=== PATIENT | female | born 1975 | race Caucasian/White ===

== ENCOUNTER 2024-05-20 22:35 | Inpatient (IN) ==
[2024-05-21] MEDS: MoRPHine SULFATE 4 MG/ML 1 ML CARP\\VIAL IV STA (00:10)
[2024-05-21] MEDS: ONDANSETRON INJ 2 MG/ML 2 ML VIAL IV STA (00:10)
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
[2024-05-21 00:33] LABS: Basophils # (auto) 0.05 K/uL (0.00-0.20); Basophils % (auto) 0.5 %; Eosinophils # (auto) 0.02 K/uL (0.00-0.50); Eosinophils % (auto) 0.2 %; Hematocrit (blood only) 48.9 % (37.0-47.0); Hemoglobin 17.3 g/dl (12.0-16.0); Immature Granulocytes # (auto) 0.04 K/uL (0.01-0.20); Immature Granulocytes % (auto) 0.4 %; Lymphocytes # (auto) 1.88 K/uL (1.20-3.40); Lymphocytes % (auto) 19.7 %; Mean Corpuscular Hemoglobin 37.7 pg (25.0-34.0); Mean Corpuscular Hgb Conc 35.4 g/dL (32.0-36.0); Mean Corpuscular Volume 106.5 fL (80.0-100.0); Mean Platelet Volume 12.1 fL (9.4-12.4); Monocytes # (auto) 0.47 K/uL (0.11-0.59); Monocytes % (auto) 4.9 %; Neutrophils # (auto) 7.09 K/uL (1.40-6.50); Neutrophils % (auto) 74.3 %; Platelet Count 181 K/uL (130-400); RDW Coefficient of Variation 18.5 % (11.5-14.5); RDW Standard Deviation 71.7 fL (36.4-46.3); Red Blood Count 4.59 M/uL (4.20-5.40); White Blood Count 9.55 K/ul (4.8-10.8)
[2024-05-21] MEDS: OPTIRAY 320 125ml IV ONE (00:44)
[2024-05-21 00:52] LABS: Partial Thromboplastin Ratio 0.9; Partial Thromboplastin Time 23 Seconds (21-31); Prothrombin Time 10.8 Seconds (9.0-12.0)
[2024-05-21 00:59] LABS: Troponin I High Sensitivity 584.5 pg/ml (0-14)
[2024-05-21 01:02] LABS: Albumin Level 3.3 gm/dl (3.4-5.0); Anion Gap 14 (3-11); Bilirubin,Total 1.3 mg/dl (0.2-1.0); Calcium 8.9 mg/dl (8.6-10.3); Carbon Dioxide 30 mmol/L (21-32); Chloride 94 mmol/L (98-107); Sodium 138 mmol/L (136-145)
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
[2024-05-21 01:23] LABS: Alanine Aminotransferase 55 U/L (7-52); Albumin Globulin Ratio 1.3 (0.9-2); Alkaline Phosphatase 214 U/L (34-104); Aspartate Aminotransferase 100 U/L (13-39); BUN Creatinine Ratio 10.3 (10-20); Blood Urea Nitrogen 8 mg/dl (6-23); Globulin 2.5 gm/dl (2.5-4.0); Glucose 154 mg/dl (70-99(Fasting)); Lipase 19 U/L (11-82); Total Protein 5.8 gm/dl (6.0-8.3)
[2024-05-21] MEDS: POTASSIUM CHLORIDE 10 MEQ TABCR PO STA (01:27)
[2024-05-21] MEDS: ASPIRIN CHEW 324 MG PO STA (01:27)
[2024-05-21] MEDS: ALBUT/IPRATROP 3MG/0.5MG NEB 3 ML VIAL NEB STA (01:28)
[2024-05-21] MEDS: SODIUM CHLORIDE 0.9% 1,000 ML IV ONE (01:28)
[2024-05-21 01:48] LABS: Magnesium 1.4 mg/dl (1.7-2.4)
[2024-05-21] MEDS ORDERED: Patient's HEIGHT &/or WEIGHT Needed STA (02:10)
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
[2024-05-21] MEDS: MAGNESIUM SULFATE / D5W 1 GM/100 ML BAG IV SCH (02:46)
[2024-05-21] MEDS: metroNIDAZOLE 500 MG/100 ML BAG IV STA (02:47)
[2024-05-21] MEDS: NSS + 20MEQ KCL 20 MEQ/1,000 ML BAG IV SCH (02:47)
[2024-05-21] MEDS: CEFEPIME 2000MG 2,000 MG/20 ML SYR IV STA (02:47)
[2024-05-21] MEDS: methylPREDNISolone 125 MG/2 ML VIAL IV STA (02:47)
[2024-05-21] MEDS ORDERED: MoRPHine SULFATE 4 MG/ML 1 ML CARP\\VIAL IV PRN (03:01)
[2024-05-21 03:14] LABS: Adenovirus PCR Not Detected (NotDetected); Bordetella parapertussis PCR Not Detected (NotDetected); Bordetella pertussis PCR Not Detected (NotDetected); Chlamydia pneumoniae PCR Not Detected (NotDetected); Coronavirus 229E PCR Not Detected (NotDetected); Coronavirus CoV-2 (COVID19)PCR Not Detected (NotDetected); Coronavirus HKU1 PCR Not Detected (NotDetected); Coronavirus NL63 PCR Not Detected (NotDetected); Coronavirus OC43PCR Not Detected (NotDetected); Human Metapneumovirus PCR Not Detected (NotDetected); Influenza A PCR Not Detected (NotDetected); Influenza B PCR Not Detected (NotDetected); Mycoplasma pneumoniae PCR Not Detected (NotDetected); Parainfluenza Virus 1 PCR Not Detected (NotDetected); Parainfluenza Virus 2 PCR Not Detected (NotDetected); Parainfluenza Virus 3 PCR Not Detected (NotDetected); Parainfluenza Virus 4 PCR Not Detected (NotDetected); Respiratory Syncytial VirusPCR Not Detected (NotDetected); Rhinovirus/Enterovirus PCR Not Detected (NotDetected)
[2024-05-21] MEDS: MoRPHine SULFATE 2 MG/ML CARP IV PRN (04:21)
[2024-05-21] MEDS: ALBUT/IPRATROP 3MG/0.5MG NEB 3 ML VIAL NEB SCH (07:15)
--- NOTE | 2024-05-21 07:25 | Pulmonary Consultation ---
Date of Consultation May 21, 2024 Assessment & Plan (1) Aspiration into airway: Patient aspirated a hard candy into her airway last night. Her was successfully able to remove it after aggressive back slaps and Heimlich maneuver. She continues with discomfort in her chest and back. Pain control f or this will be important. Will provide incentive spirometry as well. Imaging with some haziness and groundglass opacities in the bilateral lower lung sanchez. She does have rhonchorous breath sounds likely related to her recent aspiration. Agree with steroids and antibiotic coverage for now, however de- escalation of antibiotics sooner than later. Thankfully, she is only requiring this time. Hopefully she will continue to recover quickly and be able to be discharged home. No indication for bronchoscopic evaluation at this time. Will place the patient on Anoro for now given her exam findings and since she has received benefit from DuoNebs. (2) Hypoxia: Resolved. Likely the setting of aspiration pneumonitis. (3) Tobacco dependence: Patient carries an approximate 32-55-jcbc-year history of smoking. She continues smoke half pack a day. Smoking cessation was encouraged. Given her description of "asthma" symptoms that she has has been experiencing an increasing frequency over the last few years and her smoking history, would be interested in formal pulmonary function testing in the outpatient setting to assess her respiratory physiology. Her CT does not demonstrate significant emphysematous changes, would be interested in her degree of obstructive lung dysfunction. Certainly, asthma may be the underlying diagnosis, however given her associated smoking, this puts her at risk for ongoing progression of lung disease. (4) Asthma exacerbation: Inhaled steroids and systemic steroids as above. Transition to oral corticosteroid starting tomorrow for a total course of 7 days. Plan Thank you for allowing us to precipitate in the care of this pleasant patient. Pulmonary medicine will continue to follow. Supervising Physician Co-Signing Physician Notes I separately evaluated the patient and agree with the note above aside for any additions/exceptions noted: Unfortunately, no PFTs available as an outpatient. Patient notes that prior to her choking episode she had the beginnings to have an asthma/COPD exacerbation for 2 days prior. I suspect she may have an element of asthma and COPD overlap syndrome given her age. She does endorse about a 13-zkfl-ifcd smoking history. Would recommend checking an alpha-1 phenotype as an outpatient and level. Would also recommend outpatient PFTs and exhaled nitric oxide testing. Agree with systemic corticosteroids for today and likely transitioning to p.o. prednisone tomorrow. From a LABA/LAMA to nebulized budesonide nebulized formoterol. Will de-escalate from cefepime and Flagyl to Rocephin and doxycycline. She did have a prolonged QTc and a reduction in her EF possibly from Takotsubo's. Smoking cessation strongly encouraged. I did review her CT chest which revealed some mild inspissated mucus in the lower lobes. No overt signs of aspirated content in her airways. No role for bronchoscopy currently. Would recommend sputum cultures if able to obtain. On exam she is wheezing bilaterally on auscultation. She does not appear to be overtly dyspneic. She appears fairly euvolemic. Recommend follow-up CT chest in about 2 to 3 months to follow-up on the mosaic attenuation seen in the lower lobes. History of Present Illness Reason for Consultation: aspiration pneumonia, COPD ex Requesting Physician: Dr. Vick Attending Physician: Eliu Brock MD History of Present Illness Patient is a 48-year-old female with a significant past medical history of hypertension and tobacco dependence who presented to the emergency department overnight after choking episode. She reports that she has not been feeling well since just before . She felt symptoms of a cold including a cough. She was eating a lemon candy last night while in bed and noticed that she had inhaled and became lodged in her airway. She was unable to clear it with a cough and her performed back thrusts as well as the Heimlich maneuver and eventually was able to dislodge the candy. She states that she has had discomfort in her chest and upper back since the event. She reports that she did vomit a few times during this effort. During evaluation in the emergency setting, she was noted to have possible aspiration of the bilateral lower airways without foreign body present. She was started on antibiotics in the form of cefepime and Flagyl as she has a penicillin allergy. She has also been placed on intravenous steroids. Upon evaluation in room 2302, the patient is awake, alert, and oriented. Other than the discomfort in her chest and upper back, she has felt somewhat better with her breathing. She reports a prior diagnosis of asthma which has worsened throughout the last several years. She typically has to use her rescue inhaler with any colds, but admits that she has been starting to have to use it during the morning as she has a muff winder cough. She has never undergone formal pulmonary function testing herself. She reports no prior history of allergies. There is a significant family history for lung cancer in her paternal grandfather. Both of her children have asthma. She denies any occupational exposures. She does smoke approximately half a pack a day and has done so for the last 15+ years. Allergies Allergy/AdvReac Type Severity Reaction Status Date / Time Penicillins AdvReac Intermediate Vomiting Verified 05/21/24 02:07 Home Medications Medication Instructions Recorded Confirmed Type albuterol sulfate 90 mcg/actuation 2 puff inhalation Q6H PRN 06/15/23 12/06/23 Rx aerosol inhaler shortness of breath or wheezing #18 grams Patient History Surgical History H/O hysterectomy for benign disease Family History Mother Colorectal cancer Uncle Acute leukemia Grandmother (Paternal) Lung cancer Father Myocardial infarction Other Heart disease Denies family history of Ovarian cancer Prostate cancer Breast cancer Social History Smoking Status: Current every day smoker Tobacco Type: Cigarettes Age Started Using Tobacco: 16; packs per day: 0.75; Second Hand Exposure: No; Do You Dip or Chew Tobacco: No; Hx Alcohol Use: Yes Alcohol Intake Frequency: 2-3 x/Week Hx Substance Use: Yes Preferred Language: American Visual Impairment: No Limitations Hearing Ability: Normal 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 Beliefs That Will Affect Care: None marital status: Current Living Situation: Spouse current occupational status: employed How many Children do You have: 2 Feels Safe at Home: Yes Childhood Exposure to Second-Hand Smoke: No Diet: regular Diet Comment: regular caffeine: Yes (0.5 cup coffee in AM) during the past year weight has: remained stable Dental Care, Regularly: No Physical Activity Frequency: Does not Exercise Seatbelt Use: always Sunscreen Use: No Review of Systems Review of Systems: A complete 10 point review of systems was reviewed with the patient with pertinent positives and negatives as per history of present illness. All else were negative. Physical Exam Physical Exam: VITAL SIGNS Vital signs and nursing notes were reviewed. GENERAL 48-year-old female appearing her stated age who is in no acute distress. Communicates well with provider and answers questions appropriately. SKIN Without rashes or lesions. NOSE Midline and without cyanosis. MOUTH/OROPHARYNX Without perioral cyanosis. NECK Neck with FROM. LUNGS Chest wall evaluation demonstrates normal chest wall A:P diameter. Auscultation reveals rhonchorous breath sounds at the bilateral bases with slight inspiratory wheezes in the upper lung sanchez. CARDIAC RRR with S1/S2. No murmur, rubs, or gallops appreciated. ABDOMEN Abdominal inspection demonstrates a flat abdomen. BS normoactive all four quadrants. No tenderness, palpable masses, or ascites noted. EXTREMITIES Nail clubbing not present. No peripheral cyanosis. No pretibial edema present. +3/5 radial palpated throughout. PSYCH A&Ox3 and cooperates fully with examiner. Pt is very pleasant and interacts well with examiner. Results & Data Results & Data Vital Signs (Past 12 Hours) Vital Signs Temp Pulse Pulse Resp BP BP Pulse Ox 05/21/24 07:20 98 H 18 93 05/21/24 07:05 36.6 C 94 H 18 108/77 95 05/21/24 04:42 106 H 05/21/24 04:38 05/21/24 04:28 36.7 C 109 H 22 120/82 95 05/21/24 03:32 36.9 C 05/21/24 03:30 98 H 19 110/82 95 05/21/24 02:44 103 H 05/21/24 02:42 102 H 25 H 113/91 97 05/21/24 01:48 108 H 31 H 91 05/21/24 01:36 98 H 20 98 05/21/24 01:30 102 H 125/99 99 05/21/24 01:03 106 H 31 H 115/90 97 05/21/24 00:22 26 H 89 L 05/21/24 00:06 100 H 24 90 05/20/24 23:54 98 H 21 88 L 05/20/24 23:36 104 H 26 H 93 05/20/24 23:24 99 H 21 87 L 05/20/24 23:18 98 H 19 91 05/20/24 23:09 95 H 16 89 L 05/20/24 23:00 92/71 L 05/20/24 23:00 92/71 L 05/20/24 22:57 87 18 92 05/20/24 22:54 89 23 91 05/20/24 22:48 89 05/20/24 22:39 36.6 C 104 H 20 95/65 L 100 05/20/24 22:35 05/20/24 22:35 O2 Del Method O2 Flow Rate 05/21/24 07:20 Nasal Cannula 2 05/21/24 07:05 Nasal Cannula 4 05/21/24 04:42 05/21/24 04:38 Nasal Cannula 4 05/21/24 04:28 Nasal Cannula 4 05/21/24 03:32 05/21/24 03:30 Nasal Cannula 4 05/21/24 02:44 05/21/24 02:42 Nasal Cannula 4 05/21/24 01:48 05/21/24 01:36 05/21/24 01:30 Oxymask 8 05/21/24 01:03 Oxymask 10 05/21/24 00:22 Oxymask 8 05/21/24 00:06 05/20/24 23:54 05/20/24 23:36 05/20/24 23:24 05/20/24 23:18 05/20/24 23:09 05/20/24 23:00 05/20/24 23:00 05/20/24 22:57 05/20/24 22:54 05/20/24 22:48 05/20/24 22:39 Room Air 05/20/24 22:35 Room Air 05/20/24 22:35 Room Air PG Care Time/CCT Total # of Minutes Spent Total Time Spent with Patient: Total time spent is greater than 50% in coordination of care (as documented) at patient's floor/unit and/or counseling patient: Coding Level of Care Code 81292 IN/OBS CONSULT LVL 3,45M Diagnoses Aspiration into airway T17.908A Hypoxia R09.02 Tobacco dependence F17.200 Asthma exacerbation J45.901
[2024-05-21] MEDS: ONDANSETRON INJ 2 MG/ML 2 ML VIAL IV PRN (07:46)
[2024-05-21 09:02] LABS: Estimated Average Glucose 103 mg/dl; Hemoglobin A1C 5.2 % (4.5-5.6)
[2024-05-21 09:10] LABS: Albumin Globulin Ratio 1.1 (0.9-2); Albumin Level 2.9 gm/dl (3.4-5.0); BUN Creatinine Ratio 12.9 (10-20); Calcium 8.4 mg/dl (8.6-10.3); Chol HDL Ratio 2.1 (0-5); Creatinine Clr Calc Pharmacy 85.3 ml/min; Globulin 2.7 gm/dl (2.5-4.0); Magnesium 2.3 mg/dl (1.7-2.4); Potassium 4.2 mmol/L (3.5-5.1); Total Protein 5.6 gm/dl (6.0-8.3); Troponin I High Sensitivity 489.7 pg/ml (0-14)
[2024-05-21 09:22] LABS: Folate (Folic Acid),Ser orPlas 2.92 ng/ml (>5.38)
[2024-05-21] MEDS: metroNIDAZOLE 500 MG/100 ML BAG IV SCH (10:01)
[2024-05-21] MEDS: ALBUT/IPRATROP 3MG/0.5MG NEB 3 ML VIAL NEB PRN (10:26)
--- NOTE | 2024-05-21 10:38 | XCELERA ---
[id number] \\[id number]
[2024-05-21] MEDS: FOLIC ACID 1 MG in SYRINGE 9.8 ML IV STA (11:00)
[2024-05-21] MEDS: LOSARTAN POTASSIUM 25 MG TAB PO SCH (11:00)
[2024-05-21] MEDS: CYANOCOBALAMIN (B-12) 500 MCG TABLET PO SCH (11:00)
[2024-05-21] MEDS: CEFEPIME 2000MG 2,000 MG/20 ML SYR IV SCH (11:43)
[2024-05-21] MEDS: METOPROLOL TARTRATE 25 MG TAB PO SCH (12:40)
--- NOTE | 2024-05-21 12:53 | Hospitalist Progress Note ---
Date of Service May 21, 2024 Assessment & Plan (1) Takotsubo cardiomyopathy: Plan: echo findings in the context of her left heart cath findings (minimal non- obstructive CAD) all c/w stress induced cardiomyopathy fortunately she appears compensated to start BB and low-dose ARB appreciate cardiology assistance (2) Asthma exacerbation: Plan: cont IV steroids, bronchodilators, etc. (3) NSTEMI (non-ST elevated myocardial infarction): Plan: troponin elevation 2nd to myocardial demand ischemia in the setting of her pneumonia, resp failure, and her stress induced CM no evidence of ACS (4) Acute respiratory failure with hypoxia: Plan: 2nd to #5 (5) Aspiration pneumonia: Plan: cont IV abx therapy b/l lower lobe pneumonia on CT chest resp biofire negative (6) Hypokalemia: Plan: replaced resolved (7) Chest wall contusion: Plan: 2nd to first aid (Heimlich maneuver) given for choking episode at home no bony injury, rib fracture, etc seen on imaging k-pad heating ordered lidoderm patches pain meds prn (8) Choking episode: Plan: 1x occurrence not a regular issue for her at home s/p Heimlich maneuver at home (9) Elevated LFTs: Plan: 2nd to known etoh-related cirrhosis (10) Tobacco dependence: (11) Hypertension: (12) Folic acid deficiency: Plan: start folate 1mg daily (13) B12 deficiency: Plan: start B12 1000mcg daily (14) Polycythemia: Plan: 2nd to chronic tobacco use and underlying lung disease repeat CBC am Plan updated at bedside Admission and Anticipated Discharge Date Admission Date: May 21, 2024 Subjective patient's main complaint is that of lower chest/upper abdominal discomfort - pleuritic coughing at times patient reports that even before she choked on the candy at home she had been sick with URI symptoms for a few days does confirm h/o cirrhosis 2nd to etoh tele since admission - NSR Physical Exam Physical Exam: gen - thin, uncomfortable appearing, holds her lower chest due to discomfort neck - no JVD mouth - throat is erythematous/irritated, MMM otherwise heart - RRR, s1 s2, no murmur lungs - rales b/l bases, occasional wheeze, no increased work of breathing abd - soft ND BS+; tender high epigastric region extending onto the lower midline chest wall ext - no edema, pulses 2+ b/l feet Results & Data Results & Data Vital Signs (Past 12 Hours) Vital Signs Temp Pulse Pulse Resp BP BP Pulse Ox 05/21/24 11:14 36.6 C 93 H 17 104/72 94 05/21/24 10:26 69 16 96 05/21/24 08:00 99 H 05/21/24 08:00 05/21/24 07:20 98 H 18 93 05/21/24 07:05 36.6 C 94 H 18 108/77 95 05/21/24 04:42 106 H 05/21/24 04:38 05/21/24 04:28 36.7 C 109 H 22 120/82 95 05/21/24 03:32 36.9 C 05/21/24 03:30 98 H 19 110/82 95 05/21/24 02:44 103 H 05/21/24 02:42 102 H 25 H 113/91 97 05/21/24 01:48 108 H 31 H 91 05/21/24 01:36 98 H 20 98 05/21/24 01:30 102 H 125/99 99 05/21/24 01:03 106 H 31 H 115/90 97 O2 Del Method O2 Flow Rate 05/21/24 11:14 Room Air 05/21/24 10:26 Nasal Cannula 1 05/21/24 08:00 05/21/24 08:00 Nasal Cannula 2 05/21/24 07:20 Nasal Cannula 2 05/21/24 07:05 Nasal Cannula 4 05/21/24 04:42 05/21/24 04:38 Nasal Cannula 4 05/21/24 04:28 Nasal Cannula 4 05/21/24 03:32 05/21/24 03:30 Nasal Cannula 4 05/21/24 02:44 05/21/24 02:42 Nasal Cannula 4 05/21/24 01:48 05/21/24 01:36 05/21/24 01:30 Oxymask 8 05/21/24 01:03 Oxymask 10 Laboratory Results Laboratory Results - last 24 hr 05/20/24 05/21/24 05/21/24 22:55 02:20 02:52 WBC 9.55 RBC 4.59 Hgb 17.3 H Hct 48.9 H MCV 106.5 H MCH 37.7 H MCHC 35.4 RDW Std Deviation 71.7 H RDW Coeff of Nathan 18.5 H Plt Count 181 MPV 12.1 Immature Gran % (Auto) 0.4 Neut % (Auto) 74.3 Lymph % (Auto) 19.7 [place] % (Auto) 4.9 Eos % (Auto) 0.2 Baso % (Auto) 0.5 Neut # (Auto) 7.09 H Lymph # (Auto) 1.88 [place] # (Auto) 0.47 Eos # (Auto) 0.02 Baso # (Auto) 0.05 Immature Gran # (Auto) 0.04 PT 10.8 INR 1.0 APTT 23 PTT Ratio 0.9 Sodium 138 Potassium 3.0 L Chloride 94 L Carbon Dioxide 30 Anion Gap 14 H BUN 8 Creatinine 0.78 Est Cr Clr Drug Dosing Not Reportable eGFR 93.63 BUN/Creatinine Ratio 10.3 Glucose 154 H Estimat Average Glucose Hemoglobin A1c Calcium 8.9 Magnesium 1.4 L Total Bilirubin 1.3 H AST 100 H ALT 55 H Alkaline Phosphatase 214 H Troponin I High Sens 584.5 H* 806.0 H* D Total Protein 5.8 L Albumin 3.3 L Globulin 2.5 Albumin/Globulin Ratio 1.3 Triglycerides Cholesterol LDL Cholesterol, Calc VLDL Cholesterol, Calc HDL Cholesterol Cholesterol/HDL Ratio Lipase 19 Vitamin B12 Folate Nasal Screen MRSA (PCR) Negative Adenovirus (PCR) Not Detected B. pertussis DNA (PCR) Not Detected B.parapertussis DNA PCR Not Detected C. pneumoniae DNA (PCR) Not Detected Coronavirus OC43 (PCR) Not Detected Coronavirus HKU1 (PCR) Not Detected Coronavirus 229E (PCR) Not Detected SARS-CoV-2 (PCR) Not Detected Coronavirus NL63 (PCR) Not Detected Human Metapneumovir PCR Not Detected Influenza Type A (PCR) Not Detected Influenza Type B (PCR) Not Detected M. pneumoniae (PCR) Not Detected Parainfluenza 1 (PCR) Not Detected Parainfluenza 2 (PCR) Not Detected Parainfluenza 3 (PCR) Not Detected Parainfluenza 4 (PCR) Not Detected RSV (PCR) Not Detected Entero/Rhino (PCR) Not Detected 05/21/24 08:05 WBC RBC Hgb Hct MCV MCH MCHC RDW Std Deviation RDW Coeff of Nathan Plt Count MPV Immature Gran % (Auto) Neut % (Auto) Lymph % (Auto) [place] % (Auto) Eos % (Auto) Baso % (Auto) Neut # (Auto) Lymph # (Auto) [place] # (Auto) Eos # (Auto) Baso # (Auto) Immature Gran # (Auto) PT INR APTT PTT Ratio Sodium 137 Potassium 4.2 D Chloride 103 Carbon Dioxide 25 Anion Gap 9 BUN 9 Creatinine 0.70 Est Cr Clr Drug Dosing 85.3 eGFR 106.62 BUN/Creatinine Ratio 12.9 Glucose 170 H Estimat Average Glucose 103 Hemoglobin A1c 5.2 Calcium 8.4 L Magnesium 2.3 Total Bilirubin 1.0 AST 65 H ALT 45 Alkaline Phosphatase 184 H Troponin I High Sens 489.7 H* D Total Protein 5.6 L Albumin 2.9 L Globulin 2.7 Albumin/Globulin Ratio 1.1 Triglycerides 87 Cholesterol 183 LDL Cholesterol, Calc 79 VLDL Cholesterol, Calc 17 HDL Cholesterol 87 Cholesterol/HDL Ratio 2.1 Lipase Vitamin B12 210 Folate 2.92 L Nasal Screen MRSA (PCR) Adenovirus (PCR) B. pertussis DNA (PCR) B.parapertussis DNA PCR C. pneumoniae DNA (PCR) Coronavirus OC43 (PCR) Coronavirus HKU1 (PCR) Coronavirus 229E (PCR) SARS-CoV-2 (PCR) Coronavirus NL63 (PCR) Human Metapneumovir PCR Influenza Type A (PCR) Influenza Type B (PCR) M. pneumoniae (PCR) Parainfluenza 1 (PCR) Parainfluenza 2 (PCR) Parainfluenza 3 (PCR) Parainfluenza 4 (PCR) RSV (PCR) Entero/Rhino (PCR) PG Care Time/CCT Total # of Minutes Spent Total Time Spent with Patient: Total time spent is greater than 50% in coordination of care (as documented) at patient's floor/unit and/or counseling patient: Coding Level of Care Code None Diagnoses Takotsubo cardiomyopathy I51.81 Exacerbation of intermittent asthma, unspecified asthma severity J45.21 Asthma severity: unspecified severity Asthma persistence: intermittent NSTEMI (non-ST elevated myocardial infarction) I21.4 Acute respiratory failure with hypoxia J96.01 Aspiration pneumonia J69.0 Aspiration pneumonia type: unspecified Laterality: unspecified laterality Lung location: unspecified part of lung Hypokalemia E87.6 Chest wall contusion S20.219A Encounter type: initial encounter Laterality: unspecified laterality Choking episode R09.89 Elevated LFTs R79.89 Tobacco dependence F17.200 Primary hypertension I10 Hypertension type: primary hypertension Folic acid deficiency E53.8 B12 deficiency E53.8 Polycythemia D75.1 (2) Asthma exacerbation Asthma severity: unspecified severity Asthma persistence: intermittent Qualified Code(s): J45.21 - Mild intermittent asthma with (acute) exacerbation (5) Aspiration pneumonia Aspiration pneumonia type: unspecified Laterality: unspecified laterality Lung location: unspecified part of lung Qualified Code(s): J69.0 - Pneumonitis due to inhalation of food and vomit (7) Chest wall contusion Encounter type: initial encounter Laterality: unspecified laterality Qualified Code(s): S20.219A - Contusion of unspecified front wall of thorax, initial encounter (11) Hypertension Hypertension type: primary hypertension Qualified Code(s): I10 - Essential (primary) hypertension
[2024-05-21] MEDS ORDERED: methylPREDNISolone 10 mg/mL (For Ped Dose < 7mg) IV SCH (14:00)
--- NOTE | 2024-05-21 14:02 | Electrocardiogram Report ---
Test Reason : Blood Pressure : */* mmHG Vent. Rate : 89 BPM Atrial Rate : 89 BPM P-R Int : 144 ms QRS Dur : 84 ms QT Int : 424 ms P-R-T Axes : 60 24 43 degrees QTcB Int : 515 ms Normal sinus rhythm Low voltage QRS Prolonged QT Abnormal ECG No previous ECGs available Confirmed by Johnathan Lee ([id number]) on 05/21/2024 2:02:07 PM Referred By: REFERRED SELF Confirmed By: Johnathan Lee
--- NOTE | 2024-05-21 14:05 | Cardiology Consultation ---
Date of Consultation May 21, 2024 Assessment & Plan (1) Elevated troponin I level: (2) Takotsubo cardiomyopathy: Mrs. Valdez is a 48-year-old female with a history of Hypertension, Tobacco Dependence, Peripheral Neuropathy, Nephrolithiasis and COPD/Asthma who was in her usual state of health when she tried to swallow a piece of hard candy (lemon-head) and realized that she accidentally aspirated that hard candy into her airway/lung. Fortunately her was lying on the couch right beside her, so he immediately performed the Heimlich maneuver several times and even tried to finger sweep her upper airway. The patient estimates that the piece of candy was down in her airway/lungs for about a minute and a half at the most (although it felt like it was forever) -- long enough for the coating on the candy to dissolve. Patient also was gagging herself trying to vomit it up. Ultimately was able to get the candy up and out of her mouth with the Heimlich maneuver. However, the patient continued to feel short of breath, is wheezing, and was found to have significant aspiration into bilateral lungs. Prior to this event, she thought she is having some mild aggravation of her underlying asthma, however, she became significantly worse, to the point where she knew she had to come to the emergency department for assessment. In the ER patient was intermittently hypoxic with SpO2 levels in the upper 80s. She does have a normal white blood cell count at 9.55, hemoglobin and hematocrit are elevated at 17.3 g per dL and 48.9% respectively. Normal platelet count. She was hypokalemic with a serum potassium level of 3.0 mmol/L. BUN is 8, creatinine 0.78. Magnesium was slightly low but that has been corrected as well. Patient was placed on supplemental oxygen, received DuoNeb nebulizer treatments, and started on antibiotics to cover her aspiration. She was also noted to have an elevated high sensitivity troponin I level of 584.5 pg/mL which subsequently peaked at 806.0 pg/mL, and subsequently trended down to 489.7 pg/mL. Her EKG 05/21/24 showed: Normal sinus rhythm. Low voltage QRS. Prolonged QT. Abnormal EKG. No previous EKGs available. CTA CHEST shows no appreciable coronary artery atherosclerosis or aortic atherosclerosis. No evidence pulmonary embolism, but she does have evidence aspiration into bilateral lower lobes. Patient is currently being seen in room 230-2. She still complains of shortness of breath and admits that her chest is sore every time she moves after performed a Heimlich maneuver on her several times. She has remained stable in the front desk monitor but she is tachycardic at times. She has been in a sinus rhythm predominantly with rates in the 90s and low 100. Patient has never experienced any classic angina pectoris, she does not have any overt signs or symptoms of heart failure, nor does she have any symptoms suggestive of dysrhythmia. 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 This condition was discussed with the patient. I discussed this case with Dr. Lee who has also met with the patient. Recommend the followin. Begin Losartan 25 mg daily. 2. Begin Lopressor 12.5 mg b.i.d. with appropriate hold parameters. 3. Titrate these medicines if blood pressure and heart rate allow. 4. Maintain a low-sodium diet. 5. Monitor daily I&Os, body weights. 6. Repeat limited 2D echo to assess LV systolic function prior to discharge. (3) Aspiration into airway: (4) Asthma exacerbation: (5) Acute respiratory failure with hypoxia: Management as per hospitalist and pulmonology team. (6) Hypertension: Blood pressures appear to be controlled throughout this hospitalization. -- Add Lopressor and Losartan as outlined above. -- Encouraged smoking cessation. Thank you for asking us to see this patient in consultation. We will continue to follow her while hospitalized and following discharge. Patient agrees with this plan. Supervising Physician Co-Signing Physician Notes Patient seen and examined. Agree with assessment and plan as outlined by Mr. Lopez. History and echocardiogram favor a stress-induced cardiomyopathy. Impression 1. Presumed stress-induced cardiomyopathy -Proceed with cardiac catheterization to rule out coronary ischemia. -Agree with losartan and metoprolol. -Follow-up echocardiogram later in this hospitalization or as an outpatient. History of Present Illness Reason for Consultation: -- Elevated High Sensitivity Troponin I Levels. Requesting Physician: Eliu Brock MD Attending Physician: Johnathan Lee MD History of Present Illness Mrs. Valdez is a 48-year-old female with a history of Hypertension, Tobacco Dependence, Peripheral Neuropathy, Nephrolithiasis and COPD/Asthma who was in her usual state of health when she tried to swallow a piece of hard candy (lemon-head) and realized that she accidentally aspirated that hard candy into her airway/lung. Fortunately her was lying on the couch right beside her, so he immediately performed the Heimlich maneuver several times and even tried to finger sweep her upper airway. The patient estimates that the piece of candy was down in her airway/lungs for about a minute and a half at the most (although it felt like it was forever) -- long enough for the coating on the candy to dissolve. Patient also was gagging herself trying to vomit it up. Ultimately was able to get the candy up and out of her mouth with the Heimlich maneuver. However, the patient continued to feel short of breath, is wheezing, and was found to have significant aspiration into bilateral lungs. Prior to this event, she thought she is having some mild aggravation of her underlying asthma, however, she became significantly worse, to the point where she knew she had to come to the emergency department for assessment. In the ER patient was intermittently hypoxic with SpO2 levels in the upper 80s. She does have a normal white blood cell count at 9.55, hemoglobin and hematocrit are elevated at 17.3 g per dL and 48.9% respectively. Normal platelet count. She was hypokalemic with a serum potassium level of 3.0 mmol/L. BUN is 8, creatinine 0.78. Magnesium was slightly low but that has been corrected as well. Patient was placed on supplemental oxygen, received DuoNeb nebulizer treatments, and started on antibiotics to cover her aspiration. She was also noted to have an elevated high sensitivity troponin I level of 584.5 pg/mL which subsequently peaked at 806.0 pg/mL, and subsequently trended down to 489.7 pg/ mL. Her EKG 05/21/24 showed: Normal sinus rhythm. Low voltage QRS. Prolonged QT. Abnormal EKG. No previous EKGs available. CTA CHEST shows no appreciable coronary artery atherosclerosis or aortic atherosclerosis. No evidence pulmonary embolism, but she does have evidence aspiration into bilateral lower lobes. Patient is currently being seen in room 230-2. She still complains of shortness of breath and admits that her chest is sore every time she moves after performed a Heimlich maneuver on her several times. She has remained stable in the front desk monitor but she is tachycardic at times. She has been in a sinus rhythm predominantly with rates in the 90s and low 100. Patient denies any prior cardiac history or prior cardiac events. Allergies Allergy/AdvReac Type Severity Reaction Status Date / Time Penicillins AdvReac Intermediate Vomiting Verified 05/21/24 02:07 Home Medications Medication Instructions Recorded Confirmed Type albuterol sulfate 90 mcg/actuation 2 puff inhalation Q6H PRN 06/15/23 12/06/23 Rx aerosol inhaler shortness of breath or wheezing #18 grams Patient History Surgical History H/O hysterectomy for benign disease Family History Mother Colorectal cancer Uncle Acute leukemia Grandmother (Paternal) Lung cancer Father Myocardial infarction Other Heart disease Denies family history of Ovarian cancer Prostate cancer Breast cancer Social History Smoking Status: Current every day smoker Tobacco Type: Cigarettes Age Started Using Tobacco: 16; packs per day: 0.75; Second Hand Exposure: No; Do You Dip or Chew Tobacco: No; Hx Alcohol Use: Yes Alcohol Intake Frequency: 2-3 x/Week Hx Substance Use: Yes Preferred Language: Bhutanese Visual Impairment: No Limitations Hearing Ability: Normal Veneer Puller Required: No Beliefs That Will Affect Care: None marital status: Current Living Situation: Spouse current occupational status: employed How many Children do You have: 2 Feels Safe at Home: Yes Childhood Exposure to Second-Hand Smoke: No Diet: regular Diet Comment: regular caffeine: Yes (0.5 cup coffee in AM) during the past year weight has: remained stable Dental Care, Regularly: No Physical Activity Frequency: Does not Exercise Seatbelt Use: always Sunscreen Use: No Physical Exam Physical Exam: Vital signs as listed. GENERAL: Patient is tachypneic but in no acute distress. HEENT: Head is atraumatic, normocephalic. EOM's intact. Facies symmetric. No perioral cyanosis. NECK: No JVD. JVP is not elevated. Carotid upstrokes are + 2 bilaterally without obvious bruits. CHEST/LUNGS: Harsh breath sounds in bilateral bases, scattered wheezing in the upper lung sanchez. CVS: S1 and S2 are regular without murmurs, gallops, or rubs. PMI is nondisplaced. No lifts, heaves, or thrills. No abdominal aortic or renal bruits. ABDOMINAL EXAM: Bowel sounds are present. EXTREMITIES: No clubbing or cyanosis. No edema. MUSCULOSKELETAL EXAM: Reproducible sternal and anterior chest wall tenderness to palpation, no bony deformity or crepitus. NEUROLOGIC EXAM: Patient is awake, alert, and oriented. Pleasant and cooperative. Answers questions appropriately. Speech is clear. ECHOCARDIOGRAM 05/21/24: 1. LV systolic function is moderately to severely reduced. 2. Ballooning and akinesis of the left v entricle sparing the basilar segments. 3. LVEF 30% to 35%. 4. No significant valvular pathology. 5. No prior studies available for compar oxana. Results & Data Vital Signs (Past 12 Hours) Vital Signs Temp Pulse Pulse Resp BP BP Pulse Ox 05/21/24 11:14 36.6 C 93 H 17 104/72 94 05/21/24 10:26 69 16 96 05/21/24 08:00 99 H 05/21/24 08:00 05/21/24 07:20 98 H 18 93 05/21/24 07:05 36.6 C 94 H 18 108/77 95 05/21/24 04:42 106 H 05/21/24 04:38 05/21/24 04:28 36.7 C 109 H 22 120/82 95 05/21/24 03:32 36.9 C 05/21/24 03:30 98 H 19 110/82 95 05/21/24 02:44 103 H 05/21/24 02:42 102 H 25 H 113/91 97 O2 Del Method O2 Flow Rate 05/21/24 11:14 Room Air 05/21/24 10:26 Nasal Cannula 1 05/21/24 08:00 05/21/24 08:00 Nasal Cannula 2 05/21/24 07:20 Nasal Cannula 2 05/21/24 07:05 Nasal Cannula 4 05/21/24 04:42 05/21/24 04:38 Nasal Cannula 4 05/21/24 04:28 Nasal Cannula 4 05/21/24 03:32 05/21/24 03:30 Nasal Cannula 4 05/21/24 02:44 05/21/24 02:42 Nasal Cannula 4 Laboratory Results Laboratory Results - last 24 hr 05/20/24 05/21/24 05/21/24 22:55 02:20 02:52 WBC 9.55 RBC 4.59 Hgb 17.3 H Hct 48.9 H MCV 106.5 H MCH 37.7 H MCHC 35.4 RDW Std Deviation 71.7 H RDW Coeff of Nathan 18.5 H Plt Count 181 MPV 12.1 Immature Gran % (Auto) 0.4 Neut % (Auto) 74.3 Lymph % (Auto) 19.7 Preble % (Auto) 4.9 Eos % (Auto) 0.2 Baso % (Auto) 0.5 Neut # (Auto) 7.09 H Lymph # (Auto) 1.88 Preble # (Auto) 0.47 Eos # (Auto) 0.02 Baso # (Auto) 0.05 Immature Gran # (Auto) 0.04 PT 10.8 INR 1.0 APTT 23 PTT Ratio 0.9 Sodium 138 Potassium 3.0 L Chloride 94 L Carbon Dioxide 30 Anion Gap 14 H BUN 8 Creatinine 0.78 Est Cr Clr Drug Dosing Not Reportable eGFR 93.63 BUN/Creatinine Ratio 10.3 Glucose 154 H Estimat Average Glucose Hemoglobin A1c Calcium 8.9 Magnesium 1.4 L Total Bilirubin 1.3 H AST 100 H ALT 55 H Alkaline Phosphatase 214 H Troponin I High Sens 584.5 H* 806.0 H* D Total Protein 5.8 L Albumin 3.3 L Globulin 2.5 Albumin/Globulin Ratio 1.3 Triglycerides Cholesterol LDL Cholesterol, Calc VLDL Cholesterol, Calc HDL Cholesterol Cholesterol/HDL Ratio Lipase 19 Vitamin B12 Folate Nasal Screen MRSA (PCR) Negative Adenovirus (PCR) Not Detected B. pertussis DNA (PCR) Not Detected B.parapertussis DNA PCR Not Detected C. pneumoniae DNA (PCR) Not Detected Coronavirus OC43 (PCR) Not Detected Coronavirus HKU1 (PCR) Not Detected Coronavirus 229E (PCR) Not Detected SARS-CoV-2 (PCR) Not Detected Coronavirus NL63 (PCR) Not Detected Human Metapneumovir PCR Not Detected Influenza Type A (PCR) Not Detected Influenza Type B (PCR) Not Detected M. pneumoniae (PCR) Not Detected Parainfluenza 1 (PCR) Not Detected Parainfluenza 2 (PCR) Not Detected Parainfluenza 3 (PCR) Not Detected Parainfluenza 4 (PCR) Not Detected RSV (PCR) Not Detected Entero/Rhino (PCR) Not Detected 05/21/24 08:05 WBC RBC Hgb Hct MCV MCH MCHC RDW Std Deviation RDW Coeff of Nathan Plt Count MPV Immature Gran % (Auto) Neut % (Auto) Lymph % (Auto) Preble % (Auto) Eos % (Auto) Baso % (Auto) Neut # (Auto) Lymph # (Auto) Preble # (Auto) Eos # (Auto) Baso # (Auto) Immature Gran # (Auto) PT INR APTT PTT Ratio Sodium 137 Potassium 4.2 D Chloride 103 Carbon Dioxide 25 Anion Gap 9 BUN 9 Creatinine 0.70 Est Cr Clr Drug Dosing 85.3 eGFR 106.62 BUN/Creatinine Ratio 12.9 Glucose 170 H Estimat Average Glucose 103 Hemoglobin A1c 5.2 Calcium 8.4 L Magnesium 2.3 Total Bilirubin 1.0 AST 65 H ALT 45 Alkaline Phosphatase 184 H Troponin I High Sens 489.7 H* D Total Protein 5.6 L Albumin 2.9 L Globulin 2.7 Albumin/Globulin Ratio 1.1 Triglycerides 87 Cholesterol 183 LDL Cholesterol, Calc 79 VLDL Cholesterol, Calc 17 HDL Cholesterol 87 Cholesterol/HDL Ratio 2.1 Lipase Vitamin B12 210 Folate 2.92 L Nasal Screen MRSA (PCR) Adenovirus (PCR) B. pertussis DNA (PCR) B.parapertussis DNA PCR C. pneumoniae DNA (PCR) Coronavirus OC43 (PCR) Coronavirus HKU1 (PCR) Coronavirus 229E (PCR) SARS-CoV-2 (PCR) Coronavirus NL63 (PCR) Human Metapneumovir PCR Influenza Type A (PCR) Influenza Type B (PCR) M. pneumoniae (PCR) Parainfluenza 1 (PCR) Parainfluenza 2 (PCR) Parainfluenza 3 (PCR) Parainfluenza 4 (PCR) RSV (PCR) Entero/Rhino (PCR) Diagnostic Findings CTA CHEST 05/20/24: Small pulmonary cyst of size 13 x 13 mm is noted involving right basal segment. Adequate contrast bolus without evidence of pulmonary embolism. Mosaic attenuation in both lower lobes with aspirated contents seen in bilateral lower lobe bronchi and posterior segmental bronchi. The central airways are patent. No pleural effusion. The heart, aorta, and pulmonary arteries are of normal size and configuration. There are no appreciable coronary artery and aortic atherosclerotic calcifications. No pericardial effusion is identified. The thyroid shows small nodule of size 10 x 10 mm in left lobe- USG correlation suggested. No mediastinal, hilar, or axillary lymphadenopathy is noted. No suspicious lytic or sclerotic osseous lesions are identified. IMPRESSION: 1. A small simple right lower lobe pulmonary cyst. 2. Mosaic attenuation in both lower lobes with aspirated contents seen in bilateral lower lobe bronchi and posterior segmental bronchi. CTAP 05/20/24: 1. Diffuse mucosal thickening with submucosal fatty deposition is noted involving entire length of colon ; pronounced in the cecum - suggest possibility of chronic inflammatory changes-new finding. 2. No other new interval abnormality since prior study. Medications Administered Medication List Albuterol (Albut/Ipratrop 3mg/0.5mg Neb 3 Ml Vial) 3 ml NEB QIDR PRN; Protocol PRN Reason: Wheezing Stop: 06/20/24 06:59 Last Admin: 05/21/24 10:26 Dose: 3 ml Documented By: JAMES Cyanocobalamin (Cyanocobalamin (B-12) 500 Mcg Tablet) 1,000 mcg PO QAM [facility] Stop: 06/20/24 10:44 Last Admin: 05/21/24 11:00 Dose: Not Given Documented By: ELIAZAR Losartan Potassium (Losartan Potassium 25 Mg Tab) 25 mg PO QAM [facility] Stop: 06/20/24 10:29 Last Admin: 05/21/24 11:00 Dose: Not Given Documented By: ELIAZAR Metoprolol Tartrate (Metoprolol Tartrate 25 Mg Tab) 12.5 mg PO BID [facility] Stop: 06/20/24 11:44 Last Admin: 05/21/24 12:40 Dose: Not Given Documented By: ELIAZAR Morphine Sulfate (Morphine Sulfate 2 Mg/Ml Carp) 2 mg IV Q3H PRN PRN Reason: Moderate Pain (Scale 4, 5, 6) Stop: 06/04/24 03:00 Last Admin: 05/21/24 12:30 Dose: 2 mg Documented By: Admin: 05/21/24 07:46 Dose: 2 mg Documented By: Admin: 05/21/24 04:21 Dose: 2 mg Documented By: MARTHA Ondansetron HCl (Ondansetron Inj 2 Mg/Ml 2 Ml Vial) 4 mg IV Q6H PRN PRN Reason: NAUSEA/VOMITING Stop: 06/20/24 02:06 Last Admin: 05/21/24 07:46 Dose: 4 mg Documented By: ELIAZAR Discontinued Medications Albuterol (Albut/Ipratrop 3mg/0.5mg Neb 3 Ml Vial) 3 ml NEB NOW STA; Protocol Stop: 05/21/24 01:24 Last Admin: 05/21/24 01:28 Dose: 3 ml Documented By: RICH Albuterol (Albut/Ipratrop 3mg/0.5mg Neb 3 Ml Vial) 3 ml NEB QIDR CARLOS; Protocol Stop: 06/20/24 06:59 Last Admin: 05/21/24 07:15 Dose: 3 ml Documented By: CARLOS Aspirin (Aspirin Chew 324 Mg) 324 mg PO NOW STA Stop: 05/21/24 01:24 Last Admin: 05/21/24 01:27 Dose: 324 mg Documented By: RICH Sodium Chloride (Nss) 1,000 mls @ 999 mls/hr IV .Q1H1M ONE Stop: 05/21/24 02:23 Last Infusion: 05/21/24 02:28 Dose: Infused Documented By: Admin: 05/21/24 01:28 Dose: 999 mls/hr Documented By: RICH Magnesium Sulfate/Dextrose (Magnesium Sulfate / D5w) 1 gm in 100 mls @ 50 mls/hr IV Q2H CARLOS Stop: 05/21/24 06:14 Last Infusion: 05/21/24 06:25 Dose: Infused Documented By: Admin: 05/21/24 04:22 Dose: 50 mls/hr Documented By: Infusion: 05/21/24 04:19 Dose: Infused Documented By: Admin: 05/21/24 02:46 Dose: 50 mls/hr Documented By: RICH Potassium Chloride/Sodium Chloride (Normal Saline W/20 Meq Kcl) 20 meq in 1,000 mls @ 100 mls/hr IV .Q10H CARLOS Stop: 05/21/24 11:59 Last Infusion: 05/21/24 12:59 Dose: Infused Documented By: Admin: 05/21/24 02:47 Dose: 100 mls/hr Documented By: RCIH Cefepime HCl (Maxipime 2000mg) 2,000 mg in 20 mls @ 5 mls/min IV Q8H CARLOS; Protocol Stop: 05/26/24 10:59 Last Admin: 05/21/24 11:43 Dose: 5 mls/min Documented By: ELIAZAR Metronidazole (Flagyl) 500 mg in 100 mls @ 100 mls/hr IV Q8H CARLOS; Protocol Stop: 05/26/24 02:14 Last Infusion: 05/21/24 12:37 Dose: Infused Documented By: Admin: 05/21/24 10:01 Dose: 100 mls/hr Documented By: ELIAZAR Cefepime HCl (Maxipime 2000mg) 2,000 mg in 20 mls @ 5 mls/min IV NOW STA; Protocol Stop: 05/21/24 02:11 Last Admin: 05/21/24 02:47 Dose: 5 mls/min Documented By: RICH Metronidazole (Flagyl) 500 mg in 100 mls @ 100 mls/hr IV NOW STA; Protocol Stop: 05/21/24 03:08 Last Infusion: 05/21/24 04:19 Dose: Infused Documented By: Admin: 05/21/24 02:47 Dose: 100 mls/hr Documented By: RICH Folic Acid 1 mg/ Syringe 10 mls @ 5 mls/min IV NOW STA Stop: 05/21/24 10:47 Last Admin: 05/21/24 11:00 Dose: 5 mls/min Documented By: ELIAZAR Ioversol (Optiray 320 125ml) 125 ml IV ONCE ONE Stop: 05/21/24 00:45 Last Admin: 05/21/24 00:44 Dose: 118 ml Documented By: EVELYN Methylprednisolone (Methylprednisolone 125 Mg/2 Ml Vial) 125 mg IV NOW STA Stop: 05/21/24 01:59 Last Admin: 05/21/24 02:47 Dose: 125 mg Documented By: RICH Morphine Sulfate (Morphine Sulfate 4 Mg/Ml 1 Ml Carp\Vial) 4 mg IV NOW STA Stop: 05/21/24 00:05 Last Admin: 05/21/24 00:10 Dose: 4 mg Documented By: RICH Ondansetron HCl (Ondansetron Inj 2 Mg/Ml 2 Ml Vial) 4 mg IV NOW STA Stop: 05/21/24 00:05 Last Admin: 05/21/24 00:10 Dose: 4 mg Documented By: RICH Potassium Chloride (Potassium Chloride 10 Meq Tabcr) 20 meq PO NOW STA Stop: 05/21/24 01:12 Last Admin: 05/21/24 01:27 Dose: 20 meq Documented By: RICH PG Care Time/CCT Total # of Minutes Spent Total Time Spent with Patient: Total time spent is greater than 50% in coordination of care (as documented) at patient's floor/unit and/or counseling patient:48 [place] [address] INT INP/OBS CARE 2/55MIN Patient Type New Medical Decision Making Moderate Complexity Diagnoses Elevated troponin I level R79.89 Takotsubo cardiomyopathy I51.81 Aspiration into airway, initial encounter T17.908A Encounter type: initial encounter Exacerbation of intermittent asthma, unspecified asthma severity J45.21 Asthma persistence: intermittent Asthma severity: unspecified severity Acute respiratory failure with hypoxia J96.01 Primary hypertension I10 Hypertension type: primary hypertension Time Spent (min) 58 (3) Aspiration into airway Encounter type: initial encounter Qualified Code(s): T17.908A - Unspecified foreign body in respiratory tract, part unspecified causing other injury, initial encounter (4) Asthma exacerbation Asthma persistence: intermittent Asthma severity: unspecified severity Qualified Code(s): J45.21 - Mild intermittent asthma with (acute) exacerbation (6) Hypertension Hypertension type: primary hypertension Qualified Code(s): I10 - Essential (primary) hypertension
[2024-05-21] MEDS: niCARdipine 2,000 MCG/20 ML SYR ONE (15:15)
[2024-05-21] MEDS: NITROGLYCERIN/D5W 100MCG/ML 20ML SYR ONE (15:18)
[2024-05-21] MEDS: fentaNYL citrate PF 100 MCG/2 ML VIAL ONE (15:18)
[2024-05-21] MEDS: OPTIRAY 350 ONE (15:19)
[2024-05-21] MEDS: MIDAZOLAM HCL 1 MG/ML 2ML VIAL ONE ×2 (15:19→15:22)
[2024-05-21] MEDS: HEPARIN (PORCINE) 1000 UNIT/ML 10 ML (CATH LAB USE ONLY) ONE (15:21)
[2024-05-21] MEDS: cefTRIAXone SODIUM 1,000 MG/50 ML BAG IV SCH (15:39)
[2024-05-21] MEDS: methylPREDNISolone 40 MG in SYRINGE 0 ML IV SCH (16:21)
[2024-05-21] MEDS: DOXYCYCLINE HYCLATE 100 MG in DEXTROSE 5% MINI-B 100 ML IV SCH (16:22)
[2024-05-21] MEDS: oxyCODONE HCL IR 5 MG TAB (IMMEDIATE RELEASE) PO PRN (16:32)
--- NOTE | 2024-05-21 17:05 | Pre Anesthesia Assessment ---
Date of Service May 21, 2024 Pre Sedation Assessment Vital Signs Temp Pulse Pulse Resp BP BP BP 05/21/24 16:15 85 18 98/74 L 05/21/24 15:45 80 12 87/63 L 05/21/24 15:30 82 12 86/61 L 05/21/24 11:14 97.9 F 93 H 17 104/72 05/21/24 10:26 69 16 05/21/24 08:00 99 H 05/21/24 08:00 05/21/24 07:20 98 H 18 05/21/24 07:05 97.9 F 94 H 18 108/77 05/21/24 04:42 106 H 05/21/24 04:38 05/21/24 04:28 98.1 F 109 H 22 120/82 05/21/24 03:32 98.4 F 05/21/24 03:30 98 H 19 110/82 05/21/24 02:44 103 H 05/21/24 02:42 102 H 25 H 113/91 05/21/24 01:48 108 H 31 H 05/21/24 01:36 98 H 20 05/21/24 01:30 102 H 125/99 05/21/24 01:03 106 H 31 H 115/90 05/21/24 00:22 26 H 05/21/24 00:06 100 H 24 05/20/24 23:54 98 H 21 05/20/24 23:36 104 H 26 H 05/20/24 23:24 99 H 21 05/20/24 23:18 98 H 19 05/20/24 23:09 95 H 16 05/20/24 23:00 92/71 L 05/20/24 23:00 92/71 L 05/20/24 22:57 87 18 05/20/24 22:54 89 23 05/20/24 22:48 89 05/20/24 22:39 97.9 F 104 H 20 95/65 L 05/20/24 22:35 05/20/24 22:35 Pulse Ox O2 Del Method O2 Flow Rate 05/21/24 16:15 92 Room Air 05/21/24 15:45 94 Nasal Cannula 2 05/21/24 15:30 94 Nasal Cannula 2 05/21/24 11:14 94 Room Air 05/21/24 10:26 96 Nasal Cannula 1 05/21/24 08:00 05/21/24 08:00 Nasal Cannula 2 05/21/24 07:20 93 Nasal Cannula 2 05/21/24 07:05 95 Nasal Cannula 4 05/21/24 04:42 05/21/24 04:38 Nasal Cannula 4 05/21/24 04:28 95 Nasal Cannula 4 05/21/24 03:32 05/21/24 03:30 95 Nasal Cannula 4 05/21/24 02:44 05/21/24 02:42 97 Nasal Cannula 4 05/21/24 01:48 91 05/21/24 01:36 98 05/21/24 01:30 99 Oxymask 8 05/21/24 01:03 97 Oxymask 10 05/21/24 00:22 89 L Oxymask 8 05/21/24 00:06 90 05/20/24 23:54 88 L 05/20/24 23:36 93 05/20/24 23:24 87 L 05/20/24 23:18 91 05/20/24 23:09 89 L 05/20/24 23:00 05/20/24 23:00 05/20/24 22:57 92 05/20/24 22:54 91 05/20/24 22:48 05/20/24 22:39 100 Room Air 05/20/24 22:35 Room Air 05/20/24 22:35 Room Air Cardiovascular + regular rate Respiratory + respiratory effort normal Pre-Sedation Airway Assessment Smoking Status: Current every day smoker Hx Sleep Apnea: No Hx Difficult Intubation: No Short, Thick Neck: No Thyromental Distance: < 3.5 Finger Breadths Oral Cavity: + Dental Abnormalities Mallampati Class: III ASA: ASA3 Procedure Planning Contraindications for Sedation: none Current Medications Reviewed: Yes Notes The planned sedation has been discussed with the patient. Informed Consent was obtained. I have identified the patient, determined the appropriateness of sedation and have assessed the patient immediately prior to the procedure. All medicine(s) and interventions are by my order.
--- NOTE | 2024-05-21 17:05 | Post Anesthesia Assessment ---
Date of Service May 21, 2024 Post Sedation Assessment Vital Signs Temp Pulse Pulse Resp BP BP BP 05/21/24 16:15 85 18 98/74 L 05/21/24 15:45 80 12 87/63 L 05/21/24 15:30 82 12 86/61 L 05/21/24 11:14 97.9 F 93 H 17 104/72 05/21/24 10:26 69 16 05/21/24 08:00 99 H 05/21/24 08:00 05/21/24 07:20 98 H 18 05/21/24 07:05 97.9 F 94 H 18 108/77 05/21/24 04:42 106 H 05/21/24 04:38 05/21/24 04:28 98.1 F 109 H 22 120/82 05/21/24 03:32 98.4 F 05/21/24 03:30 98 H 19 110/82 05/21/24 02:44 103 H 05/21/24 02:42 102 H 25 H 113/91 05/21/24 01:48 108 H 31 H 05/21/24 01:36 98 H 20 05/21/24 01:30 102 H 125/99 05/21/24 01:03 106 H 31 H 115/90 05/21/24 00:22 26 H 05/21/24 00:06 100 H 24 05/20/24 23:54 98 H 21 05/20/24 23:36 104 H 26 H 05/20/24 23:24 99 H 21 05/20/24 23:18 98 H 19 05/20/24 23:09 95 H 16 05/20/24 23:00 92/71 L 05/20/24 23:00 92/71 L 05/20/24 22:57 87 18 05/20/24 22:54 89 23 05/20/24 22:48 89 05/20/24 22:39 97.9 F 104 H 20 95/65 L 05/20/24 22:35 05/20/24 22:35 Pulse Ox O2 Del Method O2 Flow Rate 05/21/24 16:15 92 Room Air 05/21/24 15:45 94 Nasal Cannula 2 05/21/24 15:30 94 Nasal Cannula 2 05/21/24 11:14 94 Room Air 05/21/24 10:26 96 Nasal Cannula 1 05/21/24 08:00 05/21/24 08:00 Nasal Cannula 2 05/21/24 07:20 93 Nasal Cannula 2 05/21/24 07:05 95 Nasal Cannula 4 05/21/24 04:42 05/21/24 04:38 Nasal Cannula 4 05/21/24 04:28 95 Nasal Cannula 4 05/21/24 03:32 05/21/24 03:30 95 Nasal Cannula 4 05/21/24 02:44 05/21/24 02:42 97 Nasal Cannula 4 05/21/24 01:48 91 05/21/24 01:36 98 05/21/24 01:30 99 Oxymask 8 05/21/24 01:03 97 Oxymask 10 05/21/24 00:22 89 L Oxymask 8 05/21/24 00:06 90 05/20/24 23:54 88 L 05/20/24 23:36 93 05/20/24 23:24 87 L 05/20/24 23:18 91 05/20/24 23:09 89 L 05/20/24 23:00 05/20/24 23:00 05/20/24 22:57 92 05/20/24 22:54 91 05/20/24 22:48 05/20/24 22:39 100 Room Air 05/20/24 22:35 Room Air 05/20/24 22:35 Room Air Recovery Score Activity: Moves 4 extremities Respiration: Deep Breath/Cough Circulation: +/-20% PreAnes Value Consciousness: Arouseable (by name) Oxygen Saturation: O2 needed for >90% Post Anesthesia Score: 8 Discharge Sedation Level of Care: Fast Track Phase II Post Sedation Plan On clinical assessment, the patient appears to have tolerated the sedation without complications. Patient is recovering as anticipated. Patient will continue to be monitored by nursing and may be discharged when sedation discharge criteria are met per below protocol. Upon Completions of procedure up to 15 minutes continue every 5 minute vital signs and the P.A.R. score; then discharge to a Phase I or Fast Track to Phase II per the following guidelines: * Discharge Patient to appropriate Phase II area if PAR is 8 or greater or return to pre- procedure baseline. The post - procedure orders will be as directed. * If PAR score is less than 8 or not return to pre-procedure baseline then patient will follow Phase I monitoring till PAR is reached for Phase II. The Phase I may be done in procedure room or may call to secure a Phase I area. * If naloxone or flumazenil are used for reversal, hold in Phase I for continued monitoring from when last reversal dose was given for a minimum of 60 minutes or longer pending the nurse and/or physician discretion of patient condition before discharge to Phase II. Please call the Sedation Physician to re-evaluate and complete post-note for discharge to Phase II area. Do NOT discharge from procedure sedation or Phase 1 until post- sedation evaluation note is complete by procedure /sedation MD Sedation Discharge Instructions to be given to the patient at discharge to home.
--- NOTE | 2024-05-21 17:16 | Cardiac Catheterization ---
[facility] Data: Can Cutter Cardiac Status Clinical evaluation leading to the procedure CAD Presenation: Non STEMI Diagnostic Physicians Name: Wilian Castillo MD Closure Device Recommendations: Medical Therapy and/or Counseling Cardiac Cath Procedure Full Procedure Date May 21, 2024 Pre-Procedure Diagnosis Pre-Procedure Diagnosis: Non STEMI and Cardiomyopathy AUC Score AUC Score: 7 Post-Procedure Diagnosis Post-Procedure Diagnosis: Mild CAD Procedure(s) Performed Procedure(s) Performed: Coronary Angiography, Left Heart Cath and Ultrasound Guided Vascular Access Rn Cvor Wilian Castillo MD Upper Tier(s) Showers Estimated Blood Loss Estimated Blood Loss: 5 Medication(s) Medication(s): Fentanyl, Heparin, Lidocaine 1%, Nicardipine, Nitroglycerin and Versed Summary of Findings Indication: NSTEMI, new LV dysfunction. Access: 6 Fr slender right radial artery under ultrasound guidance Catheters: Patrick, diagnostic JL 3.5 Findings: LM -normal caliber, no significant disease LAD -medium caliber, 30-40% ostial stenosis. Remainder of vessel without signif icant disease and wraps around apex. Circumflex -medium caliber, AV groove circumflex without significant disease. Small OM1, large OM 2, medium left PLB without significant disease. RCA -dominant, medium caliber, no significant disease LVEDP -10 Arterial Closure: TR band Summary: 1. Mild nonobstructive coronary artery disease -30% ostial LAD (suspect in part secondary to vasospasm) 2. Normal intracardiac filling pressure Recommendations: No acute or high risk CAD to explain patient's troponin/LV dysfunction. Findings most likely secondary to stress-induced cardiomyopathy. GDMT and ASCVD risk factor modification per Dr. Lee Hemodynamics Rest Ao:: 100/60/88 Final Ao: 97/59/81 LV: 89/17 Recommendations Recommendations: Medical Therapy and/or Counseling Specimens Specimens: None Radiation Exposure (mGy) 217 Contrast (mls) 30 Anesthesia Moderate 7360-1184 Procedural Complication(s) None Disposition PCU I attest to the content of the Intraoperative Record and any orders documented therein. Any exceptions are noted below. [facility] Card Cath Procedure Codes Cardiac Catheterization Procedure 1: Cardiovascular Cath Procedures: 63426 Coronaries and LHC (+/-LV) Therapeutic Services & Ancillary Procedure 1: Cardiovascular Tx and Anc Procedures: 74045 Ultrasonic Guidance Vascular Access Moderate Sedation Procedure 1: Sedation/Anesthesia: 33248 Mod Sedation by the same physician;Init15 Min Child Age 5 & Up PG Care Time/CCT Total # of Minutes Spent Total Time Spent with Patient: Total time spent is greater than 50% in coordination of care (as documented) at patient's floor/unit and/or counseling patient:
[2024-05-21] MEDS: LIDOCAINE 5% 1 PATCH TD SCH (18:00)
[2024-05-21] MEDS: BUDESONIDE 0.5 MG/2 ML VIAL (PULMICORT) NEB SCH (18:03)
[2024-05-21] MEDS: FORMOTEROL 20 MCG/2 ML VIAL NEB SCH (18:03)
[2024-05-22] MEDS: cefTRIAXone SODIUM 1,000 MG/50 ML BAG IV SCH (00:07)
--- OUTSIDE RECORDS SUMMARY | 2024-05-22 03:42 | External Medical Summary | Summary of Care ---
Author Name Unknown Organization [facility] Address [address] [place] [address] Phone [phone] Care Team Providers Care Consultant Nurse Name Role Phone Corazon Sung DO Primary Care Provider [phone] Encounter Details Date Type Department Care Team (Late st Contact Info) Description 01/15/2024 Orders Only Outcomes Research Department [address] [place] [address] Sharmaine Cooper CHRA MyCode Research Other*[id number] Allergies Active Allergy Reactions Criticality Noted Date Comments Penicillins 08/30/2007 Had severe reaction to amoxicillin of vomiting and diarrhea causing hospitalization documented as of this encounter (statuses as of 01/15/2024) Medications Medication Sig Dispensed Refills Start Date End Date Status CLOBETASOL PROPIONATE 0.05 % EX CREAIndications:Deter gent dermatitis use twice daily as directed 30 g 1 09/01/2014 Active lisinopril (PRINIVIL) 5 MG TabletIndications:HTN , goal below 140/90 TAKE 1 TABLET EVERY DAY 30 Tab 5 06/29/2015 Active PredniSONE (DELTASONE) 20 MG TabletIndications:Vir al URI with cough Take 2 pills for 5 days, then 1 pill for 5 days. Take in the morning with food. 15 Tab 05/10/2016 Active documented as of this encounter (statuses as of 01/15/2024) Active Problems Problem Noted Date Diagnosed Date Advance directive discussed with patient 015 Overview: No, Advance Directive brochure offered, patient declined. Sebaceous cyst 09/01/2014 Dysfunctional voiding of urine 03/05/2014 Levator spasm 03/05/2014 Mucous polyp of cervix 03/31/2009 documented as of this encounter (statuses as of 01/15/2024) Immunizations Name Administration Dates Next Due Pneumococcal Polysaccharide PPV23 (Pneumovax) Seasonal Influenza, Split, IIV3, With Preserve, Inj 04/01/2015,03/06/2014 TDAP, Age 7 and older, IM (Adacel) 08/01/2008 documented as of this encounter Social History Tobacco Use Types Packs/Day Years Used Date Smoking Tobacco: Every Day Cigarettes 0.8 10 Started: 10/06/1998; Last attempted to quit: 10/06/2008 Smokeless Tobacco: Never Comments:22 Alcohol Use Standard Drinks/Week Comments Yes 0 (1 standard drink = 0.6 oz pure alcohol) several days a week - michaela at night to help sleep Utilities Answer Date Recorded Do you have trouble paying y our heating, water, or electric bill? (Adult - for ages 18 years and over) Not on file 12/05/2023 Is your family able to pay t he heat, water, or electric bill? (Household - for ages 0-17 years) Not on file 12/05/2023 Does your family have access to good internet? (Household - for ages 0-17 years) Not on file 12/05/2023 Social Connections Answer Date Recorded How often do you feel lonely or isolated from those around you? (Adult - for ages 18 years and over) Not on file 12/05/2023 Sex and Gender Information Value Date Recorded Sex Assigned at Not on file Gender Identity Not on file Sexual Orientation Not on file documented as of this encounter Functional Status Functional Status Response Date of Assess ment Are you deaf or do you have serious difficulty h earing? No 10/01/2014 Are you blind or do you have serious difficulty seeing, even when wearing glasses? No 10/01/2014 Do you have serious difficul ty walking or climbing stairs? (5 years old or older) Yes 10/01/2014 Do you have difficulty dress ing or bathing? (5 years old or older) No 10/01/2014 Because of a physical, menta l, or emotional condition, do you have difficulty doing errands alone such as visiting a doctor s office or shopping? (15 years old or older) Yes 10/02/19 15 Cognitive Status Response Date of Assessm ent Because of a physical, menta l, or emotional condition, do you have serious difficulty concentrating, remembering, or making decisions? (5 years old or older) No 10/01/2014 documented as of this encounter Plan of Treatment Scheduled Orders Name Type Priority Associated Diagnoses Orde r Schedule MYCODE INITIAL ADULT Lab Routine MyCode Research Other*[id number] Expected: 01/15/2024 (Approximate), Expires: 02/03/2025 Health Maintenance Due Date Last Done Comments HIV Screening 12/18/1990 Hepatitis C Screening 12/18/1993 Hepatitis B Vaccine (1 of 3 - 19+ 3-dose series) 12/18/1994 Pneumococcal Vaccine: Pediatrics (0 to 5 Years) and At-Risk Patients (6 to 64 Years) (2 of 2 - PCV) 08/01/2009 08/01/2008 Mammogram 2015 Depression Screening 05/10/2017 05/10/2016 DTaP,Tdap,and Td Vaccines (2 - Td or Tdap) 08/01/2018 08/01/2008 Lipid Panel 02/26/2019 02/26/2014 Cologuard 12/18/2020 Colonoscopy 12/18/2020 Colorectal Cancer Screening 12/18/2020 Fecal Occult Blood Test 12/18/2020 Sigmoidoscopy 12/18/2020 COVID-19 Vaccine (1 - 2022-2 4 season) 2023 Influenza Vaccine (FLU shot) (#1) 2024 04/01/2015, 03/06/2014 Pap Smear Discontinued 11/18/2013 (Done elsewhere), 06/19/2004 (Done elsewhere) HPV (Gardasil) Vaccine Aged Out No lo nger eligible based on patient's age to complete this topic MENINGOCOCCAL (MENACTRA/MENVEO) Aged Out No longer eligible based on patient's age to complete this topic documented as of this encounter Medical Devices Not on filedocumented as of this encounter Visit Diagnoses Diagnosis MyCode Research Other*[id number] documented in this encounter Care Teams Consultant Nurse Relationship Specialty Start Date End Date Corazon Sung DO PCP - General Family Medicine 1/8/15 documented as of this encounter
[2024-05-22 08:18] LABS: Hematocrit (blood only) 46.9 % (37.0-47.0); Hemoglobin 15.7 g/dl (12.0-16.0); Mean Corpuscular Hemoglobin 37.3 pg (25.0-34.0); Mean Corpuscular Hgb Conc 33.5 g/dL (32.0-36.0); Mean Corpuscular Volume 111.4 fL (80.0-100.0); Mean Platelet Volume 12.2 fL (9.4-12.4); Platelet Count 134 K/uL (130-400); RDW Coefficient of Variation 19.6 % (11.5-14.5); RDW Standard Deviation 78.4 fL (36.4-46.3); Red Blood Count 4.21 M/uL (4.20-5.40)
[2024-05-22 08:35] LABS: Albumin Globulin Ratio 1.1 (0.9-2); BUN Creatinine Ratio 17.3 (10-20); Bilirubin,Total 0.7 mg/dl (0.2-1.0); Calcium 9.1 mg/dl (8.6-10.3); Creatinine Clr Calc Pharmacy 79.8 ml/min; Globulin 2.8 gm/dl (2.5-4.0); Potassium 4.5 mmol/L (3.5-5.1); Total Protein 5.8 gm/dl (6.0-8.3)
[2024-05-22 08:59] LABS: Basophils # (auto) 0.03 K/uL (0.00-0.20); Basophils % (auto) 0.2 %; Immature Granulocytes # (auto) 0.12 K/uL (0.01-0.20); Immature Granulocytes % (auto) 0.6 %; Lymphocytes # (auto) 0.62 K/uL (1.20-3.40); Lymphocytes % (auto) 3.2 %; Macrocytosis Present; Monocytes # (auto) 0.75 K/uL (0.11-0.59); Monocytes % (auto) 3.9 %; Neutrophils # (auto) 17.58 K/uL (1.40-6.50); Neutrophils % (auto) 92.1 %
[2024-05-22] MEDS ORDERED: UMECLIDINIUM/VILANTEROL 62.5/25MCG 7 PUFFS/INHALER INH SCH (09:00)
[2024-05-22] MEDS: FOLIC ACID 1 MG in SYRINGE 9.8 ML IV SCH (09:35)
--- NOTE | 2024-05-22 10:02 | Pulmonology Progress Note ---
Date of Service May 22, 2024 Assessment & Plan (1) Aspiration into airway: Plan: Patient aspirated a hard candy into her airway last night. Her was successfully able to remove it after aggressive back slaps and Heimlich maneuver. She continues with discomfort in her chest and back. Pain control for this will be important. Continue to encourage incentive spirometry as tolerated. Remains with some rhonchorous breath sounds in the bilateral lower bases. Continue with steroids and antibiotic coverage for now. Doing well with nebulized treatment. Would continue for now while inpatient. Would recommend discharging the patient home on high-dose Symbicort and an albuterol rescue inhaler with follow-up from pulmonary in the next several weeks. Remains on 2 L nasal cannula. Titrate down as possible. Location for bronchoscopic evaluation at this time. Encounter type: initial encounter Qualified Code(s): T17.908A - Unspecified foreign body in respiratory tract, part unspecified causing other injury, initial encounter (2) Hypoxia: Plan: Still occasionally requiring supplemental oxygen. (3) Tobacco dependence: Plan: Patient carries an approximate 29-15-tiyn-year history of smoking. She contin ues smoke half pack a day. Smoking cessation was encouraged. Given her description of "asthma" symptoms that she has has been experiencing an increasing frequency over the last few years and her smoking history, would be interested in formal pulmonary function testing in the outpatient setting to assess her respiratory physiology. Her CT does not demonstrate significant emphysematous changes, would be interested in her degree of obstructive lung dysfunction. Certainly, asthma may be the underlying diagnosis, however given her associated smoking, this puts her at risk for ongoing progression of lung disease. (4) Asthma exacerbation: Plan: Inhaled steroids and systemic steroids as above. Transition to oral corticosteroid for a total course of 7 days. Asthma severity: unspecified severity Asthma persistence: intermittent Qualified Code(s): J45.21 - Mild intermittent asthma with (acute) exacerbation Plan Thank you for allowing us to precipitate in the care of this pleasant patient. Pulmonary medicine will sign off at this time. Please feel free to reach out for any further questions or concerns. Admission and Anticipated Discharge Date Admission Date: May 21, 2024 Subjective Patient seen and evaluated at bedside. She reports a cough which causes chest discomfort from trauma. She still is requiring supplemental oxygen. She is emotional from the events as well as some concerning interactions with overnight nursing staff. Review of Systems Review of Systems: A complete 10 point review of systems was reviewed with the patient with pertinent positives and negatives as per history of present illness. All else were negative. Physical Exam Physical Exam: VITAL SIGNS Vital signs and nursing notes were reviewed. GENERAL 48-year-old female appearing her stated age who is in no acute distress. Communicates well with provider and answers questions appropriately. SKIN Without rashes or lesions. NOSE Midline and without cyanosis. MOUTH/OROPHARYNX Without perioral cyanosis. NECK Neck with FROM. LUNGS Chest wall evaluation demonstrates normal chest wall A:P diameter. Auscultation reveals rhonchorous breath sounds at the bilateral bases with slight inspiratory wheezes in the upper lung sanchez. CARDIAC RRR with S1/S2. No murmur, rubs, or gallops appreciated. ABDOMEN Abdominal inspection demonstrates a flat abdomen. BS normoactive all four quadrants. No tenderness, palpable masses, or ascites noted. EXTREMITIES Nail clubbing not present. No peripheral cyanosis. No pretibial edema present. +3/5 radial palpated throughout. PSYCH A&Ox3 and cooperates fully with examiner. Pt is very pleasant and interacts well with examiner. Results & Data Results & Data Vital Signs (Past 12 Hours) Vital Signs Temp Pulse Pulse Resp BP BP Pulse Ox 05/22/24 07:03 36.3 C L 71 17 93/64 L 95 05/22/24 06:49 91 H 18 88 L 05/22/24 04:00 83 20 94 05/22/24 02:39 36.8 C 80 18 99/66 L 93 05/21/24 22:41 36.6 C 87 18 108/73 93 05/21/24 21:59 77 O2 Del Method O2 Flow Rate 05/22/24 07:03 Nasal Cannula 2 05/22/24 06:49 Room Air 05/22/24 04:00 Nasal Cannula 2 05/22/24 02:39 Nasal Cannula 05/21/24 22:41 Nasal Cannula 05/21/24 21:59 PG Care Time/CCT Total # of Minutes Spent Total Time Spent with Patient: Total time spent is greater than 50% in coordination of care (as documented) at patient's floor/unit and/or counseling patient: Coding Level of Care Code 45226 SUB INP/OBS CARE 2/35MIN Diagnoses Aspiration into airway, initial encounter T17.908A Encounter type: initial encounter Hypoxia R09.02 Tobacco dependence F17.200 Exacerbation of intermittent asthma, unspecified asthma severity J45.21 Asthma severity: unspecified severity Asthma persistence: intermittent
[2024-05-22] MEDS: BACLOFEN 10 MG TAB PO SCH (18:27)
--- NOTE | 2024-05-22 19:46 | Hospitalist Progress Note ---
Date of Service May 22, 2024 Assessment & Plan (1) Takotsubo cardiomyopathy: Plan: echo findings in the context of her left heart cath findings (minimal non- obstructive CAD) all c/w stress induced cardiomyopathy fortunately she remains compensated discussed dx in detail reassured her most individuals recover from such cont metoprolol tartrate 12.5mg BID; change to succinate at d/c if BPs can tolerate continue low-dose losartan appreciate cardiology assistance will need f/u with [facility] [place] Cardiology post-d/c (2) Asthma exacerbation: Plan: improving cont IV steroids but lower solumedrol from 40mg BID to 30mg BID likely over to prednisone tomorrow cont bronchodilators, etc. cont pulm toilet as tolerated (3) NSTEMI (non-ST elevated myocardial infarction): Plan: troponin elevation 2nd to myocardial demand ischemia in the setting of her pneumonia, resp failure, and her stress induced CM no evidence of ACS (4) Acute respiratory failure with hypoxia: Plan: 2nd to #5 and #2 wean O2 as tolerated (5) Aspiration pneumonia: Plan: cont IV abx therapy - perhaps over to PO abx tomorrow? b/l lower lobe pneumonia on CT chest resp biofire negative (6) Hypokalemia: Plan: replaced resolved (7) Chest wall contusion: Plan: 2nd to first aid (Heimlich maneuver) given for choking episode at home no bony injury, rib fracture, etc seen on imaging but remains very tender over lower sternum/xiphoid region will review her imaging with radiologist again k-pad heating lidoderm patches pain meds prn (8) Choking episode: Plan: 1x occurrence not a regular issue for her at home s/p Heimlich maneuver at home (9) Elevated LFTs: Plan: 2nd to known etoh-related cirrhosis LFTs trending down she & her do admit to etoh intake over the thus, LFTs were likely etoh-related repeat LFTs in am (10) Tobacco dependence: (11) Hypertension: Plan: controlled (12) Folic acid deficiency: Plan: cont folate 1mg daily (13) B12 deficiency: Plan: cont B12 1000mcg daily (14) Polycythemia: Plan: 2nd to chronic tobacco use and underlying lung disease repeat CBC today with improved H/H Plan updated at bedside once again home tomorrow? Monday? Admission and Anticipated Discharge Date Admission Date: May 21, 2024 Subjective tele overnight wnl she continues to have pain in the upper abd/lower chest in the midline - near the xiphoid area kpad heating pad is helpful pain meds help can take deeper breaths today but still not back to normal she continues with mild cough no dyspnea at rest able to walk a bit more today than previous eating is fair-good still very upset about her choking spell at home - very tearful talking about this wants to go home tomorrow at bedside & updated Review of Systems Review of Systems: gen - no fevers or chills cv - see HPI; no orthopnea pulm - no significant sputum GI - no N/V Physical Exam Physical Exam: gen - thin, looks better today, but still uncomfortable when she coughs neck - no JVD mouth - throat less erythematous/irritated today; MMM otherwise heart - RRR, s1 s2, no murmur lungs - rales b/l bases, rhonchi/wheezes b/l, improved airation today; no increased work of breathing chest - still quite tender lower sternum/xiphoid region to palpation abd - soft ND BS+; tender high epigastric region ext - trace edema b/l, pulses 2+ b/l feet psych - tearful but a/o x 3 neuro - no signs of etoh withdrawal Results & Data Results & Data Vital Signs (Past 12 Hours) Vital Signs Temp Pulse Pulse Resp BP BP Pulse Ox 05/22/24 19:42 100 H 18 98 05/22/24 19:25 36.8 C 79 18 98/66 L 92 05/22/24 18:18 67 05/22/24 15:47 36.5 C 75 18 92/64 L 94 05/22/24 11:12 36.6 C 87 17 112/75 91 05/22/24 10:04 89 05/22/24 08:00 O2 Del Method O2 Flow Rate 05/22/24 19:42 Nasal Cannula 2 05/22/24 19:25 Room Air 05/22/24 18:18 05/22/24 15:47 Nasal Cannula 2.0 05/22/24 11:12 Room Air 05/22/24 10:04 05/22/24 08:00 Nasal Cannula 2 Laboratory Results Laboratory Results - last 24 hr 05/22/24 08:04 WBC 19.10 H RBC 4.21 Hgb 15.7 Hct 46.9 MCV 111.4 H MCH 37.3 H MCHC 33.5 RDW Std Deviation 78.4 H RDW Coeff of Nathan 19.6 H Plt Count 134 MPV 12.2 Immature Gran % (Auto) 0.6 Neut % (Auto) 92.1 Lymph % (Auto) 3.2 [place] % (Auto) 3.9 Eos % (Auto) 0.0 Baso % (Auto) 0.2 Neut # (Auto) 17.58 H Lymph # (Auto) 0.62 L [place] # (Auto) 0.75 H Eos # (Auto) 0.00 Baso # (Auto) 0.03 Immature Gran # (Auto) 0.12 Macrocytosis Present Sodium 140 Potassium 4.5 Chloride 102 Carbon Dioxide 30 Anion Gap 8 BUN 13 Creatinine 0.75 Est Cr Clr Drug Dosing 79.8 eGFR 98.14 BUN/Creatinine Ratio 17.3 Glucose 137 H Calcium 9.1 Total Bilirubin 0.7 AST 51 H ALT 38 Alkaline Phosphatase 159 H Total Protein 5.8 L Albumin 3.0 L Globulin 2.8 Albumin/Globulin Ratio 1.1 PG Care Time/CCT Total # of Minutes Spent Total Time Spent with Patient: Total time spent is greater than 50% in coordination of care (as documented) at patient's floor/unit and/or counseling patient: Coding Level of Care Code 63269 SUB INP/OBS CARE 3/50MIN Diagnoses Takotsubo cardiomyopathy I51.81 Exacerbation of intermittent asthma, unspecified asthma severity J45.21 Asthma persistence: intermittent Asthma severity: unspecified severity NSTEMI (non-ST elevated myocardial infarction) I21.4 Acute respiratory failure with hypoxia J96.01 Aspiration pneumonia J69.0 Aspiration pneumonia type: unspecified Laterality: unspecified laterality Lung location: unspecified part of lung Hypokalemia E87.6 Chest wall contusion S20.219A Encounter type: initial encounter Laterality: unspecified laterality Choking episode R09.89 Elevated LFTs R79.89 Tobacco dependence F17.200 Primary hypertension I10 Hypertension type: primary hypertension Folic acid deficiency E53.8 B12 deficiency E53.8 Polycythemia D75.1 (2) Asthma exacerbation Asthma persistence: intermittent Asthma severity: unspecified severity Qualified Code(s): J45.21 - Mild intermittent asthma with (acute) exacerbation (5) Aspiration pneumonia Aspiration pneumonia type: unspecified Laterality: unspecified laterality Lung location: unspecified part of lung Qualified Code(s): J69.0 - Pneumonitis due to inhalation of food and vomit (7) Chest wall contusion Encounter type: initial encounter Laterality: unspecified laterality Qualified Code(s): S20.219A - Contusion of unspecified front wall of thorax, initial encounter (11) Hypertension Hypertension type: primary hypertension Qualified Code(s): I10 - Essential (primary) hypertension
[2024-05-23] MEDS: methylPREDNISolone 30 MG in SYRINGE 0 ML IV SCH (04:32)
[2024-05-23 07:47] LABS: Albumin Level 2.6 gm/dl (3.4-5.0); Bilirubin,Total 0.5 mg/dl (0.2-1.0); Calcium 8.7 mg/dl (8.6-10.3); Creatinine Clr Calc Pharmacy 93.3 ml/min; Globulin 2.5 gm/dl (2.5-4.0); Potassium 4.9 mmol/L (3.5-5.1); Total Protein 5.1 gm/dl (6.0-8.3)
[2024-05-23 07:48] LABS: Hematocrit (blood only) 40.1 % (37.0-47.0); Hemoglobin 13.8 g/dl (12.0-16.0); Mean Corpuscular Hemoglobin 38.2 pg (25.0-34.0); Mean Corpuscular Hgb Conc 34.4 g/dL (32.0-36.0); Mean Corpuscular Volume 111.1 fL (80.0-100.0); Mean Platelet Volume 12.6 fL (9.4-12.4); Platelet Count 97 K/uL (130-400); RDW Coefficient of Variation 19.2 % (11.5-14.5); RDW Standard Deviation 77.8 fL (36.4-46.3); Red Blood Count 3.61 M/uL (4.20-5.40); White Blood Count 11.85 K/ul (4.8-10.8)
[2024-05-23 07:58] LABS: Basophils # (auto) 0.01 K/uL (0.00-0.20); Basophils % (auto) 0.1 %; Hypersegmented Neutrophils 1+; Immature Granulocytes # (auto) 0.07 K/uL (0.01-0.20); Immature Granulocytes % (auto) 0.6 %; Lymphocytes # (auto) 0.65 K/uL (1.20-3.40); Lymphocytes % (auto) 5.5 %; Monocytes # (auto) 0.46 K/uL (0.11-0.59); Monocytes % (auto) 3.9 %; Neutrophils # (auto) 10.66 K/uL (1.40-6.50); Neutrophils % (auto) 89.9 %
[2024-05-23] MEDS ORDERED: oxyCODONE HCL IR 5 MG TAB (IMMEDIATE RELEASE) PO PRN (10:41)
--- NOTE | 2024-05-23 10:46 | Hospitalist Progress Note ---
Date of Service May 23, 2024 Assessment & Plan (1) Takotsubo cardiomyopathy: Plan: stable compensated tele wnl echo findings in the context of her left heart cath findings (minimal non- obstructive CAD) all c/w stress induced cardiomyopathy discussed dx in detail reassured her most individuals recover from such cont metoprolol tartrate 12.5mg BID; change to succinate at d/c if BPs can tolerate continue low-dose losartan 25mg daily appreciate cardiology assistance will need f/u with [facility] Cardiology post-d/c (2) Asthma exacerbation: Plan: improving can stop IV steroids today change to PO prednisone 30mg daily and perform taper over the next several days cont bronchodilators, etc. cont pulm toilet as tolerated add tessalon 100mg TID (3) NSTEMI (non-ST elevated myocardial infarction): Plan: troponin elevation 2nd to myocardial demand ischemia in the setting of her pneumonia, resp failure, and her stress induced CM no evidence of ACS (4) Acute respiratory failure with hypoxia: Plan: 2nd to #5 and #2 improved now off O2 (5) Aspiration pneumonia: Plan: b/l lower lobe pneumonia on CT chest resp biofire negative improving can stop IV abx therapy change rocephin to omnicef 300mg BID change IV doxy to PO doxy BID plan 7 days in total of Rx between IV/PO (6) Hypokalemia: Plan: replaced resolved (7) Chest wall contusion: Plan: along with sternal fracture (see #15 below) 2nd to first aid (Heimlich maneuver) given for choking episode at home k-pad heating lidoderm patches pain meds prn (8) Choking episode: Plan: 1x occurrence not a regular issue for her at home s/p Heimlich maneuver at home (9) Elevated LFTs: Plan: 2nd to known etoh-related cirrhosis LFTs trending down she & her do admit to etoh intake over the thus, LFTs were likely etoh-related repeat LFTs today stable (10) Tobacco dependence: (11) Hypertension: Plan: controlled on BB / ARB (12) Folic acid deficiency: Plan: cont folate 1mg daily (13) B12 deficiency: Plan: cont B12 1000mcg daily (14) Polycythemia: Plan: 2nd to chronic tobacco use and underlying lung disease repeat CBC yesterday with improved H/H (15) Sternal fracture: Plan: as seen on CT chest this is the cause of her ongoing lower chest wall pain in the midline 2nd to recent Heimlich maneuver she needed morphine IV this am for pain relief ideally we convert all IV pain meds to PO and ensure her pain is decently controlled over the next 24 hours thus, * increase oxy to 7.5mg q6h prn for pain 1-7 on pain scale * oxy 10mg q6h prn for pain 8-10 on pain scale * lidoderms * control the cough better - add tessalon 100mg TID * increase baclofen to 5mg TID * heat although mildly displaced no Rx needed other than pain control 25-OH vit D level was 30 in 06/2023 defer recheck Plan updated at bedside once again this am home tomorrow if #15 has good pain control Admission and Anticipated Discharge Date Admission Date: May 21, 2024 Subjective tele overnight wnl - NSR pt slept poorly last pm coughing leads to lower midline chest wall pain needed morphine this am for the pain most times pain is 6/10 on pain scale wants to shower heating pad helps pain less wheezing/dyspnea eating ok she hopes to get home tomorrow Review of Systems Review of Systems: gen - no fevers or chills cv - chest wall pain pulm - coughing, wheezing GI - no abd pain Physical Exam Physical Exam: gen - thin, again looks better today neck - no JVD mouth - MMM heart - RRR, s1 s2, no murmur lungs - minimal rales b/l bases, rhonchi/wheezes b/l - improved, airation wnl today; no increased work of breathing chest - tender lower sternum/xiphoid region to palpation abd - soft ND BS+ NT; no HSM ext - trace edema b/l, pulses 2+ b/l feet psych - a/o x 3 Results & Data Results & Data Vital Signs (Past 12 Hours) Vital Signs Temp Pulse Pulse Resp BP BP Pulse Ox 05/23/24 10:13 84 05/23/24 08:00 05/23/24 07:27 36.4 C L 74 18 108/74 93 05/23/24 07:04 102 H 18 91 05/23/24 02:47 36.5 C 77 18 110/76 94 05/22/24 22:51 36.6 C 78 18 96/70 L 92 O2 Del Method O2 Flow Rate 05/23/24 10:13 05/23/24 08:00 Nasal Cannula 2 05/23/24 07:27 Room Air 05/23/24 07:04 Room Air 05/23/24 02:47 Nasal Cannula 05/22/24 22:51 Room Air Laboratory Results Laboratory Results - last 24 hr 05/23/24 07:05 WBC 11.85 H RBC 3.61 L Hgb 13.8 Hct 40.1 MCV 111.1 H MCH 38.2 H MCHC 34.4 RDW Std Deviation 77.8 H RDW Coeff of Nathan 19.2 H Plt Count 97 L MPV 12.6 H Immature Gran % (Auto) 0.6 Neut % (Auto) 89.9 Lymph % (Auto) 5.5 Gillespie % (Auto) 3.9 Eos % (Auto) 0.0 Baso % (Auto) 0.1 Neut # (Auto) 10.66 H Lymph # (Auto) 0.65 L Gillespie # (Auto) 0.46 Eos # (Auto) 0.00 Baso # (Auto) 0.01 Immature Gran # (Auto) 0.07 Hypersegmented Neuts 1+ Sodium 140 Potassium 4.9 Chloride 106 Carbon Dioxide 30 Anion Gap 4 BUN 16 Creatinine 0.64 Est Cr Clr Drug Dosing 93.3 eGFR 108.94 BUN/Creatinine Ratio 25.0 H Glucose 118 H Calcium 8.7 Total Bilirubin 0.5 AST 70 H ALT 43 Alkaline Phosphatase 141 H Total Protein 5.1 L Albumin 2.6 L Globulin 2.5 Albumin/Globulin Ratio 1.0 Diagnostic Findings I reviewed the CT chest from admission with radiology -- there is a mildly displaced inferior sternal fracture present PG Care Time/CCT Total # of Minutes Spent Total Time Spent with Patient: Total time spent is greater than 50% in coordination of care (as documented) at patient's floor/unit and/or counseling patient: Coding Level of Care Code 82646 SUB INP/OBS CARE 3/50MIN Diagnoses Takotsubo cardiomyopathy I51.81 Exacerbation of intermittent asthma, unspecified asthma severity J45.21 Asthma severity: unspecified severity Asthma persistence: intermittent NSTEMI (non-ST elevated myocardial infarction) I21.4 Acute respiratory failure with hypoxia J96.01 Aspiration pneumonia J69.0 Aspiration pneumonia type: unspecified Laterality: unspecified laterality Lung location: unspecified part of lung Hypokalemia E87.6 Chest wall contusion S20.219A Encounter type: initial encounter Laterality: unspecified laterality Choking episode R09.89 Elevated LFTs R79.89 Tobacco dependence F17.200 Primary hypertension I10 Hypertension type: primary hypertension Folic acid deficiency E53.8 B12 deficiency E53.8 Polycythemia D75.1 Sternal fracture S22.20XA (2) Asthma exacerbation Asthma severity: unspecified severity Asthma persistence: intermittent Qualified Code(s): J45.21 - Mild intermittent asthma with (acute) exacerbation (5) Aspiration pneumonia Aspiration pneumonia type: unspecified Laterality: unspecified laterality Lung location: unspecified part of lung Qualified Code(s): J69.0 - Pneumonitis due to inhalation of food and vomit (7) Chest wall contusion Encounter type: initial encounter Laterality: unspecified laterality Qualified Code(s): S20.219A - Contusion of unspecified front wall of thorax, initial encounter (11) Hypertension Hypertension type: primary hypertension Qualified Code(s): I10 - Essential (primary) hypertension
[2024-05-23] MEDS: predniSONE 10 MG TABLET PO SCH (12:28)
[2024-05-23] MEDS: BACLOFEN 10 MG TAB PO SCH (15:36)
[2024-05-23] MEDS: BENZONATATE 100 MG CAPSULE PO SCH (15:39)
[2024-05-23] MEDS: DOXYCYCLINE HYCLATE 100 MG CAP PO SCH (21:29)
[2024-05-23] MEDS: MELATONIN 3 MG TAB PO SCH (21:29)
[2024-05-23] MEDS: CEFDINIR 300 MG CAP PO SCH (21:29)
[2024-05-24] MEDS: oxyCODONE HCL IR 5 MG TAB (IMMEDIATE RELEASE) PO PRN (05:17)
[2024-05-24 07:14] LABS: Hematocrit (blood only) 41.7 % (37.0-47.0); Hemoglobin 14.3 g/dl (12.0-16.0); Mean Corpuscular Hemoglobin 38.1 pg (25.0-34.0); Mean Corpuscular Hgb Conc 34.3 g/dL (32.0-36.0); Mean Corpuscular Volume 111.2 fL (80.0-100.0); Mean Platelet Volume 12.1 fL (9.4-12.4); Platelet Count 101 K/uL (130-400); RDW Coefficient of Variation 19.5 % (11.5-14.5); RDW Standard Deviation 78.7 fL (36.4-46.3); Red Blood Count 3.75 M/uL (4.20-5.40); White Blood Count 8.74 K/ul (4.8-10.8)
[2024-05-24 08:13] VITALS: TEMP 97.9
[2024-05-24 09:43] LABS: Calcium 9.2 mg/dl (8.6-10.3); Creatinine Clr Calc Pharmacy 98.1 ml/min; Potassium 4.3 mmol/L (3.5-5.1)
[2024-05-24 11:43] VITALS: PULSE 73
--- NOTE | 2024-05-24 12:46 | Discharge Summary ---
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 "maintenance" inhaler for your lungs 4. for your heart - * metoprolol succinate - 12.5mg once daily at BEDTIME; first dose 05/24/24 * losartan 25mg once daily - start 05/25/24 5. check your weight every morning - see instructions below 6. for chest wall pain from the fracture - * jmck-yoh-msgejoa Salonpas - follow directions on box * heat or ice - your preference * oxycodone narcotic pain med - 5mg or 10mg every 6 hours as needed for pain * this pain medicine can make you tired * do not drive a car while taking this medicine * do not drink alcohol while taking this medicine * you likely will have some constipation while taking this medicine; your fiber gummies or sons-vrm-nrgnqam miralax are good for constipation * baclofen muscle relaxer - 5mg every 8 hours as needed * zpgk-rbo-kdkqkwp tylenol - 500mg every 8 hours as needed, maximum of 1500mg in 25 hours 7. for nutritional deficiencies found - * folic acid 1mg daily x 30 days * B12 1000mcg daily x 6 months (purchase this irzi-lio-rgnfrkx) 8. for cough - * benzonatate 100mg every 8 hours as needed * albuterol as needed 9. continue your incentive spirometry over the next week to help keep your lungs nice & inflated, and to speed along the resolution of your pneumonia, wheezing, etc. Follow-up appointments - see separate section Return to [facility] if - * you have fever over 100 degrees * you have severe diarrhea * you have worsening shortness of breath * you breastbone pain is uncontrolled * you have concerns about fluid weight gain * any other concerns It was our pleasure to care for you! Happy holidays :) -Dr Brock Total Time Total Time Spent Total Time Spent (In Minutes): 55 Coding Level of Care Code 56181 INP/OBS DISCH >30 MIN Diagnoses Takotsubo cardiomyopathy I51.81 Acute respiratory failure with hypoxia J96.01 Aspiration pneumonia J69.0 Aspiration pneumonia type: unspecified Laterality: unspecified laterality Lung location: unspecified part of lung Exacerbation of intermittent asthma, unspecified asthma severity J45.21 Asthma persistence: intermittent Asthma severity: unspecified severity NSTEMI (non-ST elevated myocardial infarction) I21.4 Hypokalemia E87.6 Chest wall contusion S20.219A Encounter type: initial encounter Laterality: unspecified laterality Choking episode R09.89 Tobacco dependence F17.200 Primary hypertension I10 Hypertension type: primary hypertension Folic acid deficiency E53.8 B12 deficiency E53.8 Polycythemia D75.1 Sternal fracture S22.20XA Coronary artery disease, non-occlusive I25.10 Cirrhosis K74.60 [address] R[address] of the abdomen R93.5
[2024-05-24 12:53] VITALS: BP 106/76; RESP 18; O2SAT 92
== END 2024-05-24 13:33 | disposition home or self-care (01) | DRG 177 ==
LOC: ED 22:35 → SUATTDRO 05-21 02:08 → 2S 05-21 02:08